=== PATIENT | male | born 1980 | race Two or more races ===

== ENCOUNTER 2020-09-24 00:56 | Emergency (ER) | payer SELFPAY ==
[~2020-09-24] VITALS: Ht 175.3 cm; Wt 86.4 kg
[2020-09-24 00:57] VITALS: BP 154/87
[2020-09-24] MEDS ORDERED: ACETAMINOPHEN 500 MG TABLET PO ONE (01:15)
[2020-09-24] MEDS ORDERED: KETOROLAC TROMETHAMINE 30 MG/ML VIAL IM ONE (01:15)
== END 2020-09-24 02:30 | disposition home or self-care (01) ==
LOC: EMS 00:58
DX: S90.31XA Contusion of right foot, initial encounter (principal); M77.31 Calcaneal spur, right foot; M24.074 Loose body in right toe joint(s); W20.8XXA Other cause of strike by thrown, projected or falling object, initial encounter; Y93.89 Activity, other specified; Y92.89 Other specified places as the place of occurrence of the external cause; Y99.0 Civilian activity done for income or pay
CPT/HCPCS: 73630; 96372; 99283; J1885

== ENCOUNTER 2020-10-02 22:33 | Emergency (ER) | payer SELFPAY ==
[~2020-10-02] VITALS: Ht 175.3 cm; Wt 86.4 kg
[2020-10-03] MEDS ORDERED: HYDROCODONE/ACETAMINOPHEN 5-325 MG TABLET PO ONE (00:45)
[2020-10-03] MEDS ORDERED: RABIES IMMUNE GLOBULIN/PF 300 UNIT/ML VIAL IM. ONE (01:00)
[2020-10-03] MEDS ORDERED: RABIES VACCINE (PCEC)/PF 2.5 UNITS/ML SYRINGE IM. ONE (01:00)
[2020-10-03] MEDS ORDERED: AMOX TR/POT CLAV 875 MG/125 MG TABLET PO ONE (01:00)
[2020-10-03] MEDS ORDERED: PERTUSS(ACELL),DIPH,TET VAC/PF 0.5 ML SYRINGE IM. ONE (01:00)
[2020-10-03 02:20] VITALS: BP 115/61
== END 2020-10-03 02:26 | disposition home or self-care (01) ==
LOC: EMS 22:33
DX: S71.132A Puncture wound without foreign body, left thigh, initial encounter (principal); S31.823A Puncture wound without foreign body of left buttock, initial encounter; S80.812A Abrasion, left lower leg, initial encounter; W54.0XXA Bitten by dog, initial encounter; Y93.89 Activity, other specified; Y92.89 Other specified places as the place of occurrence of the external cause; Y99.8 Other external cause status
CPT/HCPCS: 90471; 90472; 90675; 90715; 96372; 99284; A9575